=== PATIENT | male | born 1945 | race Caucasian/White ===

== ENCOUNTER 2017-02-12 04:20 | Observation (INO) | payer OTHER ==
[~2017-02-12] VITALS: Ht 182.9 cm; Wt 116.5 kg
[~2017-02-12 04:20] MED LIST: ALBUTEROL SULF8.5 GM IH; APRESOLINE25 MG PO; ARTIFICIAL TEAR15 M3 BOTH EYES; ASMANEX TW200 MICRO1 IH; ATROVENT 0.06% BOTH NARES; ATROVENT 0.06% NS; Asmanex Twisthaler 2 IH; Aspirin PO; CARMOL 2085 GM TP; CEFTIN500 MG PO; COMBIVENT RESPIM4 GM IH; COUMADIN5 MG PO; CRESTOR40 MG PO; DAILY VALUE1 EACH PO; DELTASONE20 M1 PO; DUONEB 2.5-0.5 M3 ML AEROSOL; ENALAPRIL MALEA20 MG PO; ENOXAPARIN120 MG/0.8 SC; FERROUS GLUCON324 MG PO; FLUNISOLIDE25 ML BOTH NARES; FLUOXETINE HCL20 MG PO; FORADIL AEROLI12 MCG IH; FORMOTEROL IH; FUROSEMIDE80 MG PO; Fish Oil PO; GLIPIZIDE10 MG; GLIPIZIDE10 MG PO; HYDRALAZINE HCL25 MG PO; HYDROCHLOROTHIA25 MG PO; Hydrodiuril,Oretic,E PO; IPRATROPIUM BRO15 ML BOTH NARES; KENALOG,ARISTOC15 G1 TP; LANTUS 10100 UNITS/ SC; LANTUS100 UNIT/1 SQ; LASIX40 MG PO; LOPRESSOR100 M1 PO; LOPRESSOR25 MG PO; MAG GLYCINATE100 MG; MAG-OXIDE400 MG PO; METFORMIN HCL1000 MG; METOPROLOL TART25 MG PO; MULTIVITAMIN PO; NITROGLYCERIN0.4 MG SL; NITROSTAT0.4 MG SL; NOVOLIN,HU100 UNITS1 SC; NOVOLOG 10100 UNITS/ SC; PANTOPRAZOLE SO40 MG PO; PERSANTINE PO; PERSANTINE75 MG PO; PLAVIX75 MG PO; POTASSIUM CHLO20 ME1 PO; PREDNISONE20 MG PO; PRILOSEC20 MG PO; ST. JOSEPH ASPI81 MG PO; SYMBICORT60 INHALAT IH; TYLENOL EXTRA500 MG PO; Tylenol Extra Streng PO; VASOTEC5 MG PO; Vasotec PO; WARFARIN SODIUM6 MG PO; Xifaxan PO; ZETIA10 MG PO
[2017-02-12 05:25] LABS: CHLORIDE 107 mEq/L (99-109); POTASSIUM 4.2 mEq/L (3.7-5.4); SODIUM 139 mEq/L (136-147)
[2017-02-12 05:27] LABS: GLUCOSE 191 mg/dL (70-99)
[2017-02-12 05:28] LABS: ANION GAP 10 MEQ/L (2-14); MCH 26.7 PG (29.0-34.0); MCHC 31.9 G/DL (30.0-36.0); MCV 83.8 FL (86-99); MEAN PLAT.VOLUME 11.6 uM^3 (9.0-12.4); PLATELET COUNT 161 K/uL (156-360); RBC DIS.WIDTH-CV 17.1 % (11.8-14.6); RBC DIS.WIDTH-SD 51.9 % (39-53); RED BLOOD COUNT 5.01 M/uL (4.00-5.50); WHITE BLOOD COUNT 11.3 K/uL (4.1-10.2)
[2017-02-12 05:31] LABS: GFR ESTIMATE (CALCULATED) 32 mL/min/
[2017-02-12 05:32] LABS: UREA NITROGEN (BUN) 37 mg/dL (9-23)
[2017-02-12 05:35] LABS: TROP-I INTERPRETATION NEGATIVE; TROPONIN-I 0.06 ng/mL (0.0-0.30)
[2017-02-12] MEDS ORDERED: [UNRECOGNIZED DRUG - OTHER] TP (09:33)
[2017-02-12] MEDS ORDERED: VITAMIN B-12500 MC5 SL (09:35)
[2017-02-12] MEDS ORDERED: ARTIFICIAL TEAR15 M1 BOTH EYES (09:35)
[2017-02-12] MEDS ORDERED: COLACE100 MG PO (09:36)
[2017-02-12] MEDS ORDERED: PRINIVIL20 MG PO (09:38)
[2017-02-12] MEDS ORDERED: FLONASE16 G1 BOTH NARES (09:39)
[2017-02-12] MEDS ORDERED: HYDRALAZINE HCL50 MG PO (09:41)
[2017-02-12] MEDS ORDERED: LOPRESSOR50 MG PO (09:43)
[2017-02-12] MEDS ORDERED: ZANTAC150 MG PO (09:47)
[2017-02-12] MEDS ORDERED: DUONEB 2.5-0.5 M3 ML AEROSOL (09:47)
[2017-02-12] MEDS ORDERED: VITAMIN D31000 UNI2 PO (09:47)
[2017-02-12 12:30] VITALS: BP 147/63
[2017-02-12 13:05] LABS: TROP-I INTERPRETATION NEGATIVE; TROPONIN-I 0.08 ng/mL (0.0-0.30)
[2017-02-12 16:05] VITALS: BP 181/79
[2017-02-12 16:54] LABS: POINT-OF-CARE METER ID UU13113831
[2017-02-12 16:58] LABS: PROTHROMBIN TIME 11.2 (9.2-11.2); PTT 27.7 (25-32)
[2017-02-12 16:59] LABS: INTER. NORMALIZED RATIO 1.1
[2017-02-12 17:01] LABS: TROP-I INTERPRETATION NEGATIVE; TROPONIN-I 0.08 ng/mL (0.0-0.30)
[2017-02-12 20:00] VITALS: BP 158/66
[2017-02-12 21:26] LABS: POINT-OF-CARE METER ID UU14162513
[2017-02-12 23:56] VITALS: BP 171/77
[2017-02-13 03:58] VITALS: BP 149/68
[2017-02-13 05:36] VITALS: BP 150/70
[2017-02-13 07:45] VITALS: BP 150/70
[2017-02-13 07:46] LABS: MCH 26.3 PG (29.0-34.0); MCHC 31.6 G/DL (30.0-36.0); MCV 83.1 FL (86-99); MEAN PLAT.VOLUME 11.5 uM^3 (9.0-12.4); PLATELET COUNT 142 K/uL (156-360); RBC DIS.WIDTH-SD 51.8 % (39-53); RED BLOOD COUNT 4.45 M/uL (4.00-5.50); WHITE BLOOD COUNT 10.2 K/uL (4.1-10.2)
[2017-02-13 08:18] LABS: ANION GAP 9 MEQ/L (2-14); CHLORIDE 103 MEQ/L (99-109); GFR ESTIMATE (CALCULATED) 37 mL/min/; GLUCOSE 164 mg/dL (70-99); POTASSIUM 4.5 MEQ/L (3.7-5.4); SAMPLE HEMOLYSIS CHECK 0; SAMPLE ICTERIC CHECK 0; SAMPLE LIPEMIA CHECK 0; SODIUM 135 MEQ/L (136-147); UREA NITROGEN (BUN) 38 mg/dL (9-23)
[2017-02-13 12:08] VITALS: BP 157/71
[2017-02-13] MEDS ORDERED: LOVENOX120 MG/0.8 SC (15:14)
[2017-02-13] MEDS ORDERED: PRADAXA150 MG PO (15:15)
[2017-02-13 20:48] VITALS: BP 150/69
[2017-02-13 21:04] LABS: POINT-OF-CARE METER ID UU13113700
[2017-02-13 23:48] VITALS: BP 150/67
[2017-02-14 00:35] LABS: POINT-OF-CARE METER ID UU13113831
[2017-02-14 03:35] LABS: POINT-OF-CARE METER ID UU13113831
[2017-02-14 03:45] VITALS: BP 1428/62
[2017-02-14 08:00] VITALS: BP 160/71
[2017-02-14 08:14] LABS: POINT-OF-CARE METER ID UU13113831
[2017-02-14] MEDS ORDERED: PRADAXA110 MG PO ×2 (09:41→09:51)
[2017-02-14] MEDS ORDERED: PRADAXA150 MG PO ×2 (10:13→10:14)
[2017-02-14 11:57] VITALS: BP 127/59
[2017-02-14 12:28] LABS: POINT-OF-CARE METER ID UU13113700
== END 2017-02-14 12:28 | disposition home or self-care (01) ==
LOC: EME → EDBD 04:20 → 5WEST 08:28 → EDOF 08:28 → 5WEST 12:28
PROVIDERS: Emergency Medicine; Hospitalist; Internal Medicine
DX: I13.0 Hypertensive heart and chronic kidney disease with heart failure and stage 1 through stage 4 chronic kidney disease, or unspecified chronic kidney disease (principal); I50.20 Unspecified systolic (congestive) heart failure; N18.9 Chronic kidney disease, unspecified; I82.4Z2 Acute embolism and thrombosis of unspecified deep veins of left distal lower extremity; I25.2 Old myocardial infarction; I25.10 Atherosclerotic heart disease of native coronary artery without angina pectoris; Z95.1 Presence of aortocoronary bypass graft; E11.22 Type 2 diabetes mellitus with diabetic chronic kidney disease; Z79.4 Long term (current) use of insulin; I73.9 Peripheral vascular disease, unspecified; J44.9 Chronic obstructive pulmonary disease, unspecified; R09.02 Hypoxemia; K21.9 Gastro-esophageal reflux disease without esophagitis; Z86.010 Personal history of colon polyps; Z87.19 Personal history of other diseases of the digestive system; Z87.891 Personal history of nicotine dependence; Z86.73 Personal history of transient ischemic attack (TIA), and cerebral infarction without residual deficits; E78.5 Hyperlipidemia, unspecified; Z79.01 Long term (current) use of anticoagulants; Z87.442 Personal history of urinary calculi; Z91.09 Other allergy status, other than to drugs and biological substances; Z88.8 Allergy status to other drugs, medicaments and biological substances
CPT/HCPCS: 71020; 78582; 80048; 82948; 83880; 84484; 85027; 85610; 85730; 93005; 93306; 93970; 94640; 94640 76; 94660; 94799; 99202; 99281; 99283; A9539; A9540; G0378; G8978 GP CH; G8980 GP CH; G8987 GO CH; G8988 GO CH; G8989 GO CH; J1644; J1650; J1815; J1940

== ENCOUNTER → 2017-10-16 | Outpatient (CLI) | payer OTHER ==
[~2017-10-16] MED LIST changes: +ACETAMINOPHEN500 MG PO; +ARTIFICIAL TEAR15 M1 BOTH EYES; +COLACE100 MG PO; +FLONASE16 G1 BOTH NARES; +HYDRALAZINE HCL50 MG PO; +LASIX20 MG PO; +LOPRESSOR50 MG PO; +LOVENOX120 MG/0.8 SC; -METOPROLOL TART25 MG PO; +METOPROLOL TART75 MG PO; +PRADAXA110 MG PO; +PRADAXA150 MG PO; +PRINIVIL20 MG PO; +SPIRONOLACTONE25 MG PO; +ULTRAM50 MG PO; +VITAMIN B-12500 MC5 SL; +VITAMIN D31000 UNI2 PO; +ZANTAC150 MG PO; +ZYLOPRIM100 MG PO; +[UNRECOGNIZED DRUG - OTHER] TP
== END | disposition home or self-care (01) ==
LOC: RES 10-11 11:00
DX: J44.9 Chronic obstructive pulmonary disease, unspecified (principal)
CPT/HCPCS: 94060; 94726; 94729

== ENCOUNTER 2017-10-20 20:00 | Inpatient (IN) | payer OTHER ==
[~2017-10-20] VITALS: Ht 182.9 cm; Wt 117.7 kg
[~2017-10-20 20:00] MED LIST changes: -ACETAMINOPHEN500 MG PO; -LASIX20 MG PO; -SPIRONOLACTONE25 MG PO; -ULTRAM50 MG PO; -ZYLOPRIM100 MG PO
[2017-10-20 20:58] LABS: HEMATOCRIT 38.4 % (38.0-50.0); HEMOGLOBIN 12.3 G/DL (12.5-16.6); MCH 27.2 PG (29.0-34.0); PLATELET COUNT 206 K/uL (156-360); RBC DIS.WIDTH-CV 15.6 % (11.8-14.6); RBC DIS.WIDTH-SD 47.9 % (39-53); RED BLOOD COUNT 4.52 M/uL (4.00-5.50); WHITE BLOOD COUNT 7.4 K/uL (4.1-10.2)
[2017-10-20 20:59] LABS: CHLORIDE 109 mEq/L (99-109); POTASSIUM 4.5 mEq/L (3.7-5.4); SODIUM 139 mEq/L (136-147)
[2017-10-20 21:00] LABS: GLUCOSE 242 mg/dL (70-99)
[2017-10-20 21:04] LABS: CREATININE 2.3 mg/dL (0.6-1.3); GFR ESTIMATE (CALCULATED) 30 mL/min/ (58.99-99999)
[2017-10-20 21:05] LABS: UREA NITROGEN (BUN) 40 mg/dL (9-23)
[2017-10-20 21:10] LABS: TROP-I INTERPRETATION NEGATIVE
[2017-10-20 21:54] LABS: INTER. NORMALIZED RATIO 1.1
[2017-10-20 21:57] LABS: PTT 38.9 SEC (25-37)
[2017-10-20] MEDS ORDERED: ACETAMINOPHEN500 MG PO (22:13)
[2017-10-20] MEDS ORDERED: LASIX20 MG PO (22:17)
[2017-10-20] MEDS ORDERED: ZYLOPRIM100 MG PO (22:25)
[2017-10-20] MEDS ORDERED: COMBIVENT RESPIM4 GM IH (22:27)
[2017-10-20] MEDS ORDERED: ULTRAM50 MG PO (22:27)
[2017-10-21 00:48] VITALS: BP 161/68
[2017-10-21 02:57] LABS: TROP-I INTERPRETATION NEGATIVE; TROPONIN-I 0.08 ng/mL (0.0-0.30)
[2017-10-21 03:13] LABS: HDL CHOLESTEROL 31 MG/DL (Desirable>=40); LDL CHOLESTEROL 60 mg/dL (Desirable<100); NON-HDL CHOLESTEROL 109 mg/dL (Desirable<160); TOTAL CHOLESTEROL 140 mg/dL (Desirable<200); TRIGLYCERIDES 244 MG/DL (Normal: <150)
[2017-10-21 03:42] VITALS: BP 156/55
[2017-10-21 07:51] VITALS: BP 167/69
[2017-10-21 10:23] LABS: TROP-I INTERPRETATION NEGATIVE; TROPONIN-I 0.09 ng/mL (0.0-0.30)
[2017-10-21 11:12] VITALS: BP 148/78
[2017-10-21 14:17] LABS: CHLORIDE 103 MEQ/L (99-109); CREATININE 1.9 MG/DL (0.6-1.3); GFR ESTIMATE (CALCULATED) 37 mL/min/ (58.99-99999); GLUCOSE 152 mg/dL (70-99); POTASSIUM 4.5 MEQ/L (3.7-5.4); SODIUM 137 MEQ/L (136-147); UREA NITROGEN (BUN) 37 mg/dL (9-23)
[2017-10-21 15:37] VITALS: BP 150/65
[2017-10-21 20:40] VITALS: BP 156/68
[2017-10-22 00:06] VITALS: BP 156/70
[2017-10-22 03:49] VITALS: BP 138/62
[2017-10-22 05:54] LABS: CHLORIDE 99 MEQ/L (99-109); CREATININE 2.1 MG/DL (0.6-1.3); GFR ESTIMATE (CALCULATED) 33 mL/min/ (58.99-99999); POTASSIUM 5.1 MEQ/L (3.7-5.4); SODIUM 134 MEQ/L (136-147); UREA NITROGEN (BUN) 46 mg/dL (9-23)
[2017-10-22 05:57] LABS: GLUCOSE 296 mg/dL (70-99)
[2017-10-22 09:12] VITALS: BP 156/70
[2017-10-22 11:30] VITALS: BP 142/78
[2017-10-22 21:49] VITALS: BP 145/66
[2017-10-23 00:23] VITALS: BP 154/74
[2017-10-23 04:18] VITALS: BP 132/68
[2017-10-23 06:09] LABS: ALBUMIN 4.1 G/DL (3.2-4.8); ALKALINE PHOSPHATASE 64 IU/L (3-129); ALT (GPT) 18 IU/L (3-49); AST (GOT) 14 IU/L (2-34); CHLORIDE 100 MEQ/L (99-109); CREATININE 2.3 MG/DL (0.6-1.3); GFR ESTIMATE (CALCULATED) 30 mL/min/ (58.99-99999); GLUCOSE 288 mg/dL (70-99); POTASSIUM 5.4 MEQ/L (3.7-5.4); SODIUM 135 MEQ/L (136-147); TOTAL BILIRUBIN 0.4 MG/DL (0.0-1.0); TOTAL PROTEIN 6.6 G/DL (6.4-8.3); UREA NITROGEN (BUN) 65 mg/dL (9-23)
[2017-10-23 07:43] VITALS: BP 149/61
[2017-10-23] MEDS ORDERED: DELTASONE20 M1 PO (07:48)
[2017-10-23] MEDS ORDERED: SPIRONOLACTONE25 MG PO (07:48)
[2017-10-23 11:55] VITALS: BP 145/66
[2017-10-23] MEDS ORDERED: LOPRESSOR50 MG PO (14:37)
== END 2017-10-23 15:20 | disposition home or self-care (01) | DRG 291 ==
LOC: EME 20:00 → EDOF 22:36 → 5WEST 22:36 → ENRESERV 22:37 → 5WEST 10-21 00:18
PROVIDERS: Hospitalist; Internal Medicine; Physician Assistant Medical
DX: I13.0 Hypertensive heart and chronic kidney disease with heart failure and stage 1 through stage 4 chronic kidney disease, or unspecified chronic kidney disease (principal); I50.33 Acute on chronic diastolic (congestive) heart failure; J44.1 Chronic obstructive pulmonary disease with (acute) exacerbation; N18.3 Chronic kidney disease, stage 3 (moderate); I25.810 Atherosclerosis of coronary artery bypass graft(s) without angina pectoris; E78.5 Hyperlipidemia, unspecified; I16.0 Hypertensive urgency; I25.82 Chronic total occlusion of coronary artery; G47.33 Obstructive sleep apnea (adult) (pediatric); K21.9 Gastro-esophageal reflux disease without esophagitis; E11.22 Type 2 diabetes mellitus with diabetic chronic kidney disease; E11.51 Type 2 diabetes mellitus with diabetic peripheral angiopathy without gangrene; E66.9 Obesity, unspecified; Z68.35 Body mass index [BMI] 35.0-35.9, adult; I25.2 Old myocardial infarction; I47.2 Ventricular tachycardia; Z79.02 Long term (current) use of antithrombotics/antiplatelets; Z79.4 Long term (current) use of insulin; Z86.718 Personal history of other venous thrombosis and embolism; Z79.82 Long term (current) use of aspirin; Z79.01 Long term (current) use of anticoagulants; I27.20 Pulmonary hypertension, unspecified; I35.0 Nonrheumatic aortic (valve) stenosis; Z87.891 Personal history of nicotine dependence
CPT/HCPCS: 71046; 80048; 80053; 80061; 82948; 83735; 83880; 84484; 85027; 85610; 85730; 93005; 93306; 94640; 94640 76; 94660; 94760; 99202; 99281; 99285; G0378; J1815; J1940; J2920; J7512

== ENCOUNTER 2017-11-11 07:22 | Day surgery (SDC) | payer OTHER ==
[~2017-11-11] VITALS: Ht 182.9 cm; Wt 113.4 kg
[~2017-11-11 07:22] MED LIST changes: +ACETAMINOPHEN500 MG PO; +LASIX20 MG PO; +SPIRONOLACTONE25 MG PO; +ULTRAM50 MG PO; +ZYLOPRIM100 MG PO
== END 2017-11-11 22:24 | disposition home or self-care (01) ==
LOC: CATH 07:22
PROVIDERS: Internal Medicine Cardiovascular Disease
DX: I25.118 Atherosclerotic heart disease of native coronary artery with other forms of angina pectoris (principal); Z95.1 Presence of aortocoronary bypass graft; I25.2 Old myocardial infarction; Z86.718 Personal history of other venous thrombosis and embolism; Z79.01 Long term (current) use of anticoagulants; I12.9 Hypertensive chronic kidney disease with stage 1 through stage 4 chronic kidney disease, or unspecified chronic kidney disease; N18.9 Chronic kidney disease, unspecified; E11.22 Type 2 diabetes mellitus with diabetic chronic kidney disease; E78.5 Hyperlipidemia, unspecified; Z86.79 Personal history of other diseases of the circulatory system; Z95.828 Presence of other vascular implants and grafts; J44.9 Chronic obstructive pulmonary disease, unspecified; E11.51 Type 2 diabetes mellitus with diabetic peripheral angiopathy without gangrene; I70.203 Unspecified atherosclerosis of native arteries of extremities, bilateral legs; Z79.4 Long term (current) use of insulin
CPT/HCPCS: 82948; C1750; C1769; C1887; C1894; J1644; J2250; J7040